=== PATIENT | male | born 1965 | race Caucasian/White ===

== ENCOUNTER → 2019-11-02 | Outpatient (CLI) | payer OTHER ==
[~2019-11-02] MED LIST: ACETAMINOPHEN650 M5 PO; ASPIR 8181 MG PO; ATORVASTATIN CA40 MG PO; CENTRUM SILVER1 EAC4; EFFIENT10 MG PO; INDOMETHACIN 5050 M1 PO; LO-DOSE ASPIRIN81 M1 PO; LOPRESSOR25 PO; NITROGLYCERIN0.4 MG SUBLING; PRINIVIL20 MG PO; ZOCOR40 MG PO
--- NOTE | 2019-11-02 13:29 | CARDNUC ---
[place] [address] CARDIAC NUCLEAR IMAGING REPORT Name: LORENA KING Room: [facility]#: [id number] Admission: 11/02/19 Attend Phys: Jesus Hoffmann, Discharge: Date of : 67 Date of Service: 11/02/19 1328 Report #: [id number] THIS REPORT FOR: cc: Renato Bello Bradley L. DO Liston, Michael J. MD [facility] ~ APPROVED REPORT Imaging Protocol: Stress Tc-99m/Rest Tc-99m 1 day Study performed: 11/02/2019 07:42:00 Indication: follow up Patient Location: Out-Patient Stress Tech: Melodie Vera Stress Nurse: Mamie Prakash RN Ht: 5 ft 11 in Wt: 193 lbs BSA: 2.08 m2 BMI: 26.91 Medical History Medical History: CAD s/p stent, HTN, Hyperlipidemia Medications: asa-81, atorvastatin, metoprolol Allergies: No known drug allergies Cardiac Risk Factors: Age, HTN, Hyperlipidemia Previous Cardiac Procedures: PCI Exercise History: Physically active Meds Held (24 hrs): metoprolol Resting Data Rest SPECT myocardial perfusion imaging was performed in supine position 30 minutes following the intravenous injection of 11.4 mCi of Tc-99m Sestamibi. Time of rest injection: 08:05 Date: 11/02/2019 The images were gated to evaluate regional wall motion and calculate left ventricular ejection fraction. Administration Route: IV Administration Site: Right Hand Exercise Stress At peak stress, the patient was injected intravenously with 34.0mCi of Tc-99m Sestamibi. Time of stress injection: 09:50 Date: 11/02/2019 Administration Route: IV Administration Site: [place] [address] CARDIAC NUCLEAR IMAGING REPORT Name: LORENA KING Room: [facility]#: [id number] Admission: 11/02/19 Attend Phys: Jesus Hoffmann, Discharge: Date of : 67 Date of Service: 11/02/19 1328 Report #: [id number] Heart Rate at time of stress injection: 146 bpm. Gated Stress SPECT was performed 30 minutes after stress injection. The images were gated to evaluate regional wall motion and calculate left ventricular ejection fraction. Prone imaging was performed. Stress Test Details Stress Test: Exercise stress testing was performed using a Moreno protocol. HR Max Heart Rate (APMHR): 168 bpm Resting HR: 50 bpm Target HR (85% APMHR): 142 bpm Max HR Achieved: 146 bpm % of APMHR: 86 Recovery HR: 89 bpm HR response to stress: Normal HR response to stress BP Resting BP: 125/80 mmHg Max BP: 152/71 mmHg Recovery BP: 148/73 mmHg BP response to stress: Normal blood pressure response to stress. ECG Resting ECG: Sinus Rhythm Stress ECG: Sinus Tachycardia ST Change: None Arrhythmia: None Recovery ECG: Sinus Rhythm Recovery ST Change: None Recovery Arrhythmia: None Clinical Reason for Termination: Maximal effort, Dyspnea, Fatigue Exercise duration: 13 min 29 sec Exercise capacity: 14.49 METs Overall Exercise Capacity for Age: Superior Functional Aerobic Impairment 86% The patient exhibited excellent exercise tolerance. There were no cardiac symptoms with standard Moreno protocol exercise. Nurse Comments pt tolerated test well. pt injected at 86%, pt having significant fatiques [place] [address] CARDIAC NUCLEAR IMAGING REPORT Name: LORENA KING Room: [facility]#: [id number] Admission: 11/02/19 Attend Phys: Jesus Hoffmann, Discharge: Date of : 67 Date of Service: 11/02/19 1328 Report #: [id number] Stress ECG Conclusion The baseline twelve-lead EKG shows sinus rhythm without significant ST segment or T wave abnormality. EKGs obtained during and post exercise show sinus rhythm and sinus tachycardia with no significant ST segment or T wave changes when compared to baseline. There were no stress-induced arrhythmias. Study Quality Study: Good Artifact: Mild Diaphragmatic artifact Study Data At rest, the left ventricular ejection fraction was 67%.. Post stress, the left ventricular ejection was 61%.. TID = 0.90. Perfusion Perfusion images obtained in the supine position at rest and post stress show very mild photopenia of the inferior wall that resolves completely with post-rest prone imaging consistent with diaphragmatic attenuation artifact. No other significant fixed or reversible defects are identified. Wall Motion Normal left ventricular wall motion. Nuclear Conclusion ECG Findings: negative for ischemia Clinical Findings: negative for ischemia Nuclear Findings: negative for ischemia Exercise Capacity: normal Left Ventricular Function: normal Risk Study: low Perfusion study showed no defect to suggest infarct or ischemia. Left ventricular systolic function is normal on gated studies. This is a low risk study. <Conclusion> The baseline twelve-lead EKG shows sinus rhythm without significant ST segment or T wave abnormality. EKGs obtained during and post exercise show sinus rhythm and sinus tachycardia with [place] [address] CARDIAC NUCLEAR IMAGING REPORT Name: LORENA KING Room: [facility]#: [id number] Admission: 11/02/19 Attend Phys: Jesus Hoffmann, Discharge: Date of : 67 Date of Service: 11/02/19 1328 Report #: [id number] segment or T wave changes when compared to baseline. There were no stress-induced arrhythmias. <ELECTRONICALLY SIGNED> By: Jesus Hoffmann MD, [facility] 11/02/19 1328 D: [id number] Jesus Hoffmann MD, FACC /INF
== END ==
LOC: M.NUC 10-23 12:16
PROVIDERS: ATTEND Internal Medicine Cardiovascular Disease
DX: R00.0 Tachycardia, unspecified (principal); I25.10 Atherosclerotic heart disease of native coronary artery without angina pectoris